=== PATIENT | female | born 1955 | race Caucasian/White ===

== ENCOUNTER 2017-06-03 03:43 | Day surgery (SDC) | payer MEDICARE, BC ==
[~2017-06-03] VITALS: Ht 161.3 cm; Wt 106.1 kg
[~2017-06-03 03:43] MED LIST: ALBU8.5H IH; AMLO-96 PO; ASPI-1471 PO; CEP500 PO; CEPH-13 PO; CEPH250C37 PO; CEPH500T7 PO; CETI-169 PO; DOC100 PO; ESOM40CA42 PO; FAM20 PO; FAMO-67 PO; FAMO20TA28 PO; FAMO20TA9 PO; GAB300 PO; HYD2 PO; HYDR-385 PO; HYDR-389 PO; HYDR15OI21 TP; IBU800 PO; IBUP600T22 PO; LAN30PT PO; LANS15CA38 PO; LIDO10VI16 INTRA-ART; LIDOCAINE/SOD BICARB 8.4% SYR ID ONE; LISI-362 PO; LOR5/325 PO; MELO-150 PO; MELO-207 PO; METF-410 PO; METXR500 PO; MOME45OI2 TP; MULT-27 PO; MULT-923 PO; PHEN-460 PO; PHEN200T32 PO; PRED20TA6 PO; RED600CA15 PO; SPIR25TA78 PO; TRAM-420 PO; TRI40I IART; UBID100C44 PO; UBID10CA11 PO; VALA100059 PO; WOMENS MULTIVITAMIN
[2017-06-03] MEDS ORDERED: LIDOCAINE/SOD BICARB 8.4% SYR ID ONE (09:35)
[2017-06-03] MEDS ORDERED: PROPOFOL EMUL(*) 10MG/ML 20 ML 20 ML ONE (11:16)
[2017-06-03 12:40] VITALS: BP 107/78
[2017-06-03] MEDS ORDERED: NORMOSOL R SOLN(*) 1000 ML BAG 1,000 ML IV PRN (13:50)
[2017-06-03] MEDS ORDERED: MIDAZOLAM 2 MG/2 ML VIAL IVP PRN (13:50)
[2017-06-03 14:06] VITALS: BP 118/68
[2017-06-03 14:15] VITALS: BP 105/77
[2017-06-03 14:30] VITALS: BP 105/70
[2017-06-03 14:38] VITALS: BP 124/82
[2017-06-03 14:40] VITALS: BP 124/84
== END 2017-06-03 15:00 | disposition home or self-care (01) ==
LOC: OR 03:43
PROVIDERS: ATTEND Family Medicine
DX: Z12.11 Encounter for screening for malignant neoplasm of colon (principal)
CPT/HCPCS: 00812; G0121; J2704

== ENCOUNTER → 2017-09-20 | Outpatient (CLI) | payer MEDICARE, BC ==
[~2017-09-20] MED LIST changes: -LIDOCAINE/SOD BICARB 8.4% SYR ID ONE; -METF-410 PO; +METF-411 PO
--- NOTE | 2017-09-20 17:24 | RADIOLOGY IMAGING REPORT ---
[place] [facility] [place] Michelle Carrillo : 1955 MR: [id number] V: [id number] EXAM DATE: ORDERING PHYSICIAN: BALJINDER STOVALL TECHNOLOGIST: Location: [facility] Patient: Michelle Carrillo : 1955 Visit/Account:[id number] Date of Sevice: 09/20/2017 DEXA Scan Clinical history: Osteopenia. Comparison: None available. LUMBAR SPINE: The bone mineral density (BMD) measured from L1-L4 correlates with a Z-score 0.5 and a T-score of 0.4 which is Normal as defined by the World Health Organization. The corresponding risk of fracture in the lumbar spine is Not increased compared with a young adult reference population. HIP: Bone mineral density (BMD) measured in the Left total hip region correlates with a Z-score -0.8 and a T-score of -1 which is Normal as defined by the World Health Organization. The corresponding risk o f fracture in the hip is 2 times increased compared with a young adult reference population. T scor e left femoral neck -1.3 Bone mineral density (BMD) measured in the Femoral Neck region measures 0.855 g/cm2. Impression: 1. Lumbar spine: Normal. 2. Left Hip: Normal. 3. Femoral Neck: Bone Mineral Density is 0.855 g/cm2 The next DEXA scan of this patient should include the following sites: L1-L4 and the left hip. FRAX? WHO Fracture Risk Assessment Tool link: <http://www.shef.ac.uk/FRAX/tool.jsp?locationValue=9> PLEASE NOTE: 1) The World Health Organization defines low BMD as follows: T-score Normal > -1 Osteopenia < -1 and > -2.5 Osteoporosis < -2.5 without fractures Established osteoporosis < -2.5 with fractures 2) In general, you may wish to consider: Diagnosis Treatment Follow-up DEXA Normal BMD Prevention 2-3 years Osteopenia Prevention/therapy 1-2 years Osteoporosis Therapy Yearly 3) Fracture risk estimated from the T-score is more accurate for vertebral fractures (often spontane ous) than for hip fractures. Report Dictated By: Delfina Huber MD at 09/20/2017 4:51 PM Report E-Signed By: Delfina Huber MD at 09/20/2017 5:18 PM WSN:ELPIDIO
--- NOTE | 2017-09-21 09:00 | RADIOLOGY IMAGING REPORT ---
FACILITY: [facility] [place] PATIENT NAME: LOUISA BOURGEOIS : [id number] MR: [id number] V: [id number] EXAM DATE: [id number] ORDERING PHYSICIAN: BALJINDER STOVALL TECHNOLOGIST: Mellisa Carrillo PROCEDURE:BILATERAL DIGITAL SCREENING MAMMOGRAM WITH CAD ASSISTED INTERPRETATION & 3D TOMOSYNTHESIS COMPARISON:Prior mammograms 08/28/16, 08/13/15, 08/08/14, 07/11/13, 12/29/11. INDICATIONS:SCREENING FINDINGS: There's predominant fatty replacement seen throughout the breasts. The parenchymal pattern has remained stable allowing for difference in mammographic technique & patient positioning. There is no evidence of malignant appearing mass, malignant appearing calcifications or other secondary sign of malignancy in either breast. DIAGNOSTIC CATEGORY 1--NEGATIVE. RECOMMENDATIONS: ROUTINE MAMMOGRAM AND CLINICAL EVALUATION. IMPRESSION: BIRADS 1: Negative. No significant abnormality is seen. Dictated by: Delfina Huber M.D. on 09/20/2017 at 17:52 Transcribed by: EDGARDO on 09/21/2017 at 8:45 Approved by: Delfina Huber M.D. on 09/21/2017 at 8:58 [facility]
== END ==
LOC: MAMO 02:19
PROVIDERS: ATTEND Physician Assistant
DX: Z13.820 Encounter for screening for osteoporosis (principal); Z12.31 Encounter for screening mammogram for malignant neoplasm of breast; N95.8 Other specified menopausal and perimenopausal disorders
CPT/HCPCS: 77063; 77067; 77080

== ENCOUNTER → 2018-03-18 | Outpatient (CLI) | payer MEDICARE, BC ==
[~2018-03-18] MED LIST changes: +AMLO-111 PO; -AMLO-96 PO; -METF-411 PO; +METF-450 PO; +SPIR25TA80 PO
--- NOTE | 2018-03-18 09:21 | EKG ---
FACILITY: [facility] [place] PATIENT NAME: LOUISA BOURGEOIS : [id number] MR: [id number] V: [id number] EXAM DATE: ORDERING PHYSICIAN: EUGENIA BURK TECHNOLOGIST: CY Blanco Reason : PREOP-TRIGGER FINGER Blood Pressure : / mmHG Vent. Rate : 063 BPM Atrial Rate : 063 BPM P-R Int : 156 ms QRS Dur : 084 ms QT Int : 402 ms P-R-T Axes : 067 079 072 degrees QTc Int : 411 ms Normal sinus rhythm Normal ECG No previous ECGs available Confirmed by EUGENIA GARZON ([id number]) on 03/18/2018 10:14:17 AM Referred By: Confirmed By:EUGENIA GARZON
== END ==
LOC: RESP 09:09
PROVIDERS: ATTEND Anesthesiology
DX: Z01.810 Encounter for preprocedural cardiovascular examination (principal); G56.22 Lesion of ulnar nerve, left upper limb; G56.02 Carpal tunnel syndrome, left upper limb; M65.341 Trigger finger, right ring finger
CPT/HCPCS: 93005